=== PATIENT | male | born 1985 | race Caucasian/White ===

== ENCOUNTER 2019-09-13 20:33 | Emergency (ER) | payer SELFPAY ==
[~2019-09-13] VITALS: Ht 182.9 cm; Wt 80.5 kg
[~2019-09-13 20:33] MED LIST: IBUP800T48 PO; METH750T93 PO
[2019-09-13 20:41] VITALS: BP 141/84; PULSE 87; RESP 16; Ht 182.9 cm; Wt 80.5 kg
[2019-09-13] MEDS ORDERED: KETOROLAC 60 MG INJ IM STA (21:19)
[2019-09-13] MEDS ORDERED: METHOCARBAMOL 750 MG TAB PO ONE (21:30)
== END 2019-09-14 00:16 | disposition home or self-care (01) ==
LOC: FTE 20:33
DX: S70.12XA Contusion of left thigh, initial encounter (principal); M62.838 Other muscle spasm; V00.838A Other accident with motorized mobility scooter, initial encounter
CPT/HCPCS: 73550; 96372; 99284; J1885